=== PATIENT | female | born 1970 | race Caucasian/White ===

== ENCOUNTER → 2017-11-30 | Outpatient (CLI) | payer OTHER | LOC: FIMAGING 14:39 | DX: Z12.31 Encounter for screening mammogram for malignant neoplasm of breast (principal) ==

== ENCOUNTER → 2017-12-16 | Outpatient (CLI) | payer OTHER | LOC: FIMAGING 14:51 | DX: R92.8 Other abnormal and inconclusive findings on diagnostic imaging of breast (principal) ==